=== PATIENT | male | born 1990 | race Caucasian/White ===

== ENCOUNTER → 2024-10-30 12:01 | Outpatient (REF) | payer OTHER, SELFPAY | LOC: DHSLP 12:01 | PROVIDERS: ATTENDING PHYSICIAN Internal Medicine Critical Care Medicine; FAMILY PHYSICIAN Internal Medicine | DX: G47.30 Sleep apnea, unspecified (principal); R06.83 Snoring; E66.9 Obesity, unspecified; Z68.34 Body mass index [BMI] 34.0-34.9, adult | CPT/HCPCS: 95800 ==